=== PATIENT | female | born 1975 | race Caucasian/White ===

== ENCOUNTER → 2017-08-22 18:04 | Outpatient (CLI) | payer OTHER, SELFPAY ==
[2017-08-22 18:06] LABS: Bacteria 0 SEEN /hpf (None Seen); Mucous, Urine 0 SEEN /hpf (<or=2+)
[2017-08-22 18:17] LABS: Color, Urine Yellow (Yellow); Glucose, Dipstick Normal (Normal); Ketone-Dipstick Negative (Negative); Leukocyte Esterase-Dipstick 500 /ul (Negative); Nitrite-Dipstick Negative (Negative); Occult Blood-Urine 250 /ul (Negative); Protein-Dipstick Negative (Negative); Specific Gravity, Urine 1.005 (1.002-1.030); Urine Bilirubin Dipstick Negative (Negative); Urine Clarity Sl. Cloudy (Clear); Urine Urobilinogen Normal (Normal)
[2017-08-22 18:33] LABS: Red Blood Cells-Urine 5-10 SEEN /hpf (0-5); Squamous Epithelial Cells - UA 0-5 SEEN /hpf (5-10); White Blood Cells 50-100 SEEN /hpf (0-5)
== END ==
PROVIDERS: Visit Provider Physician Assistant Surgical
DX: R35.0 Frequency of micturition (principal)
CPT/HCPCS: 81001; 87086; 87088

== ENCOUNTER 2017-08-24 11:34 | Emergency (ER) | payer OTHER, SELFPAY ==
[2017-08-24 11:35] VITALS: BP 136/114; PULSE 107; RESP 18; TEMP 36.6; O2SAT 95; BMI 36.0
--- NOTE | 2017-08-24 12:15 | CT_ITS ---
STUDY: CT ABDOMEN AND PELVIS WITHOUT CONTRAST REASON FOR EXAM: Female, 41 years old. Lower abdominal pain. RADIATION DOSAGE (If Supplied By Facility): CTDIvol = ( 13.88 ) mGy, DLP = ( 717.72 ) mGycm TECHNIQUE: Transaxial images were obtained from the dome of the diaphragm to the symphysis pubis without oral contrast, and without intravenous contrast. Sagittal and coronal images were reconstructed. Individualized dose optimization techniques were used for this CT. COMPARISON: Comparison is made with prior study dated October 01, 2011. FINDINGS: The visualized lung bases are unremarkable. The visualized portions of the heart are within normal limits. Normal liver. Normal gallbladder and extrahepatic biliary system. Normal spleen. Normal pancreas. Normal bilateral adrenal glands. 3 mm calculus in the upper pole calyx of the right kidney. 4 mm calculus in the anterior midpole calyx of the right kidney. 4 mm contrast in the lower Pole collects of the right kidney. Punctate calculus in the mid posterior aspect of the left kidney. 4 mm calculus in the lower pole calyx of the left kidney. There is a small hiatal hernia. Normal small intestine. Normal colon. The appendix is visualized and appears normal. Normal abdominal aorta. Normal inferior vena cava. Normal retroperitoneum. Normal urinary bladder. Phleboliths are seen within the pelvis. Small bilateral benign-appearing inguinal lymph nodes. Normal abdominal wall. Normal osseous structures. CT/Abdomen/Pelvis without Cont IMPRESSION: Small bilateral nonobstructive intrarenal calculi. Electronically Signed: Shimon Marie MD at 12:52 EDT Tel [phone], Service support ,
--- NOTE | 2017-08-24 13:56 | ED.VISSUMM ---
- ER Visit Summary Date of Service: 08/24/17 Chief Complaint: Pelvic cramping History of Present Illness: The patient is a 41 F presenting for evaluation secondary to pelvic cramping. Patient states that 2 days ago she was diagnosed at urgent care with urinary tract infection was started on Macrobid. Her only symptoms for the UTI was that she was having bladder spasms and denies that she was having any dysuria or hematuria or fevers or flank pain. Patient states that today she had a sudden onset of these bladder spasms with a mild amount of radiation to the right side of her back. States that it came on suddenly lasted about an hour and then alleviated. Patient denies that there was any laterality to this other than in her back, no exacerbating relieving factors no fevers. Patient was concerned that potentially she has a kidney stone. Physical Examination: Vital signs are within normal limits, patient is afebrile. General: Patient is well-nourished well-developed and in no acute distress. Head: Normocephalic, atraumatic Eyes: Pupils equal round and reactive bilaterally, extra occular motion intact bialterally ENT: Moist mucous membranes Neck: Supple, no lymphadenopathy, no JVD, no meningismus CVS: Heart regular rate and rhythm, no murmurs, rubs or gallops, radial pulses 2+ bilaterally Resp: Respirations nondistressed, lung sounds clear bilaterally Abdomen: Soft, suprapubic tenderness to palpation without any laterality to this, nondistended, no palpable masses, normal bowel sounds, no flank tenderness Back: Nontender Extremities: Nontender, atraumatic, active full range of motion, no peripheral edema Skin: warm, no rashes, no petechia Neuro: Alert and oriented x 4, CN 2-12 intact, no lateralizing neurological defecits Psyc: Normal affect Test Results: CT abdomen and pelvis shows nonobstructing renal stones no evidence of ureterolithiasis no evidence of pelvic pathology or large ovarian cyst or mass Emergency Department Course and Treatment: Patient presented for evaluation secondary to pelvic cramping in the setting of a UTI. CT shows no ureterolithiasis and no pelvic disease. Patient maintained a pain-free state while in the emergency department. Patient does not have any lateralizing signs to this pain, and given the fact that she has a concomitant UTI I have lower suspicion for the possibility of ovarian torsion I do not believe the pelvic imaging is necessary. Patient will be placed on a course of Pyridium in addition to her Macrobid and instructed to follow-up with her primary care physician. Disposition: Discharge Impression: 1. UTI with bladder spasm This note was generated with [employer] dictation software. It may contain incorrect words, spelling, and punctuation that were not noted in review of the chart prior to signing ED Disposition - Plan for ED Patient: Disposition: Home or Assisted Living Chief Complaint: Complaint Diagnosis: Bladder spasm Instructions: ED UTI Cystitis Female Prescriptions: Phenazopyridine HCl [Pyridium] 200 mg PO BID PRN PRN #10 tab PRN Reason: Pain Referrals: Salvador Rojas MD [Primary Care Provider] - 3-5 Days
--- NOTE | 2017-08-24 14:01 | ED.DCSUM_ITS ---
- ER Visit Summary Date of Service: 08/24/17 Chief Complaint: Pelvic cramping History of Present Illness: The patient is a 41 F presenting for evaluation secondary to pelvic cramping. Patient states that 2 days ago she was diagnosed at urgent care with urinary tract infection was started on Macrobid. Her only symptoms for the UTI was that she was having bladder spasms and denies that she was having any dysuria or hematuria or fevers or flank pain. Patient states that today she had a sudden onset of these bladder spasms with a mild amount of radiation to the right side of her back. States that it came on suddenly lasted about an hour and then alleviated. Patient denies that there was any laterality to this other than in her back, no exacerbating relieving factors no fevers. Patient was concerned that potentially she has a kidney stone. Physical Examination: Vital signs are within normal limits, patient is afebrile. General: Patient is well-nourished well-developed and in no acute distress. Head: Normocephalic, atraumatic Eyes: Pupils equal round and reactive bilaterally, extra occular motion intact bialterally ENT: Moist mucous membranes Neck: Supple, no lymphadenopathy, no JVD, no meningismus CVS: Heart regular rate and rhythm, no murmurs, rubs or gallops, radial pulses 2 + bilaterally Resp: Respirations nondistressed, lung sounds clear bilaterally Abdomen: Soft, suprapubic tenderness to palpation without any laterality to this , nondistended, no palpable masses, normal bowel sounds, no flank tenderness Back: Nontender Extremities: Nontender, atraumatic, active full range of motion, no peripheral edema Skin: warm, no rashes, no petechia Neuro: Alert and oriented x 4, CN 2-12 intact, no lateralizing neurological defecits Psyc: Normal affect Test Results: CT abdomen and pelvis shows nonobstructing renal stones no evidence of ureterolithiasis no evidence of pelvic pathology or large ovarian cyst or mass Emergency Department Course and Treatment: Patient presented for evaluation secondary to pelvic cramping in the setting of a UTI. CT shows no ureterolithiasis and no pelvic disease. Patient maintained a pain-free state while in the emergency department. Patient does not have any lateralizing signs to this pain, and given the fact that she has a concomitant UTI I have lower suspicion for the possibility of ovarian torsion I do not believe the pelvic imaging is necessary. Patient will be placed on a course of Pyridium in addition to her Macrobid and instructed to follow-up with her primary care physician. Disposition: Discharge Impression: 1. UTI with bladder spasm This note was generated with [employer] dictation software. It may contain incorrect words, spelling, and punctuation that were not noted in review of the chart prior to signing ED Disposition - Plan for ED Patient: Disposition: Home or Assisted Living Chief Complaint: Complaint Diagnosis: Bladder spasm Instructions: ED UTI Cystitis Female Prescriptions: Phenazopyridine HCl [Pyridium] 200 mg PO BID PRN PRN #10 tab PRN Reason: Pain Referrals: Salvador Rojsa MD [Primary Care Provider] - 3-5 Days
[2017-08-24 14:03] VITALS: BP 132/82; PULSE 82; PULSE 89; RESP 14; O2SAT 98; O2SAT 99
[2017-08-24] MEDS: Phenazopyridine 95 MG Tablet 190 MG PO (14:07)
== END 2017-08-24 14:09 | disposition home or self-care (01) ==
PROVIDERS: Emergency Provider Emergency Medicine; Family Provider Family Medicine; PCP Family Medicine
DX: N39.0 Urinary tract infection, site not specified (principal); N32.89 Other specified disorders of bladder
CPT/HCPCS: 74176; 99282

== ENCOUNTER → 2017-08-26 18:24 | Outpatient (CLI) | payer OTHER, SELFPAY | PROVIDERS: Visit Provider Family Medicine | DX: N39.0 Urinary tract infection, site not specified (principal) | CPT/HCPCS: 87086; 87088 ==

== ENCOUNTER → 2019-02-13 | Outpatient (CLI) | payer OTHER, SELFPAY ==
--- NOTE | 2019-02-13 13:23 | BI_ITS ---
MAMMOGRAPHY - BILATERAL SCREENING REASON FOR EXAM: Female, 43 years old. Routine annual screening examination. PERTINENT HISTORY: Non-contributory. TECHNIQUE: Digital bilateral breast sae (3D mammographic acquisition) in the CC and MLO projections. 2-D mediolateral oblique (MLO) and craniocaudad (CC) views of both breasts were obtained. CAD: Full Field Digital Mammography with Computer Added Detection was performed. COMPARISON: None. Baseline examination. FINDINGS: Breast Composition: There are scattered areas of fibroglandular density. There are no dominant masses or suspicious calcifications. Benign appearing bilateral axillary lymph nodes. No other significant abnormalities are identified. BI/SCREEN MAMM (CAD) W/SAE BILAT IMPRESSION: Negative screening mammogram. Yearly followup mammogram recommended. (A) ASSESSMENT CATEGORY: BIRADS Category 2: Benign. A letter regarding these results will be sent to the patient by the facility within 30 days. Approximately 10% of breast cancers are not detected by mammography. A normal mammogram should not delay biopsy of a clinically suspicious abnormality. [id number] Electronically Signed: Shimon Marie, at 15:00 EDT , Service support ,
== END | disposition home or self-care (01) ==
LOC: OPBI 13:21
PROVIDERS: Family Provider Family Medicine; PCP Family Medicine; Referring Provider Family Medicine; Visit Provider Family Medicine
DX: Z12.31 Encounter for screening mammogram for malignant neoplasm of breast (principal)
CPT/HCPCS: 77063; 77067

== ENCOUNTER → 2020-08-05 | Outpatient (CLI) | payer OTHER, SELFPAY ==
[2020-08-05 10:16] VITALS: BMI 34.4
[2020-08-08 13:37] LABS: HPV APTIMA, High Risk Negative (Negative)
== END | disposition home or self-care (01) ==
LOC: LABSPEC 12:09
PROVIDERS: PCP Family Medicine; Referring Provider Nurse Practitioner Women's Health; Visit Provider Nurse Practitioner Women's Health
DX: Z12.4 Encounter for screening for malignant neoplasm of cervix (principal)
CPT/HCPCS: 87624; 88175; G0145

== ENCOUNTER → 2020-08-12 07:40 | Outpatient (CLI) | payer OTHER, SELFPAY ==
[2020-08-05 10:16] VITALS: BMI 34.4
--- NOTE | 2020-08-12 07:43 | US_ITS ---
STUDY: ULTRASOUND OF THE FEMALE PELVIS - COMPLETE REASON FOR EXAM: Female, 44 years old. Bleeding LMP: 07/28/2020. TECHNIQUE: Transabdominal and Transvaginal TECHNICAL QUALITY: Adequate. COMPARISON: None. FINDINGS: The uterus is anteverted and is in a midline position. The uterus measures 9.9 cm x 6.3 cm x 4.8 cm. Normal uterine cervix. The endometrium measures 8 mm in thickness, and is hyperechoic. There is no demonstrated endometrial mass. Heterogeneous appearance of the myometrium although no focal fibroid is seen. I.U.D. - The patient does not have an I.U.D. The right ovary is visualized. The right ovary measures 5.4 cm x 3.4cm x 2.9 cm. A dominant follicle is seen within it measuring 1.7 cm x 1.6 cm x 1.2 centimeters. There is no visualized right adnexal mass or complex lesion. There is normal arterial and normal venous vascularity. The left ovary is visualized. The left ovary measures 4.7 cm x 2.9 cm x 2.2 cm. There is a 2.1 cm x 1.9 cm x 1.5 cm left ovarian septated cyst. There is no visualized left adnexal mass or complex lesion. There is normal arterial and normal venous vascularity. There is no fluid in the cul-de-sac. The pre void volume of the bladder was 55 ml. Polycystic ovary disease: No. US/Transvaginal Non- IMPRESSION: Heterogeneous appearance of the uterus although no focal fibroid is seen. 2.1 cm x 1.5 cm x 1.9 cm left ovarian septated cyst. Dominant follicle in the right ovary measuring 1.7 cm x 1.6 cm x 1.26. Electronically Signed: Shimon Marie MD at 13:57 EDT , Service support ,
--- NOTE | 2020-08-12 07:43 | US_ITS ---
STUDY: ULTRASOUND OF THE FEMALE PELVIS - COMPLETE REASON FOR EXAM: Female, 44 years old. Bleeding LMP: 07/28/2020. TECHNIQUE: Transabdominal and Transvaginal TECHNICAL QUALITY: Adequate. COMPARISON: None. FINDINGS: The uterus is anteverted and is in a midline position. The uterus measures 9.9 cm x 6.3 cm x 4.8 cm. Normal uterine cervix. The endometrium measures 8 mm in thickness, and is hyperechoic. There is no demonstrated endometrial mass. Heterogeneous appearance of the myometrium although no focal fibroid is seen. I.U.D. - The patient does not have an I.U.D. The right ovary is visualized. The right ovary measures 5.4 cm x 3.4cm x 2.9 cm. A dominant follicle is seen within it measuring 1.7 cm x 1.6 cm x 1.2 centimeters. There is no visualized right adnexal mass or complex lesion. There is normal arterial and normal venous vascularity. The left ovary is visualized. The left ovary measures 4.7 cm x 2.9 cm x 2.2 cm. There is a 2.1 cm x 1.9 cm x 1.5 cm left ovarian septated cyst. There is no visualized left adnexal mass or complex lesion. There is normal arterial and normal venous vascularity. There is no fluid in the cul-de-sac. The pre void volume of the bladder was 55 ml. Polycystic ovary disease: No. US/Pelvic (Non ) IMPRESSION: Heterogeneous appearance of the uterus although no focal fibroid is seen. 2.1 cm x 1.5 cm x 1.9 cm left ovarian septated cyst. Dominant follicle in the right ovary measuring 1.7 cm x 1.6 cm x 1.26. Electronically Signed: Shimon Marie MD at 13:57 EDT , Service support ,
--- NOTE | 2020-08-12 07:43 | BI_ITS ---
MAMMOGRAPHY - BILATERAL SCREENING REASON FOR EXAM: Female, 44 years old. Routine annual screening examination. PERTINENT HISTORY: Non-contributory. TECHNIQUE: Digital bilateral breast sae (3D mammographic acquisition) in the CC and MLO projections. 2-D mediolateral oblique (MLO) and craniocaudad (CC) views of both breasts were obtained. CAD: Full Field Digital Mammography with Computer Added Detection was performed. COMPARISON: Comparison is made with prior study 02/13/2019. FINDINGS: Breast Composition: There are scattered areas of fibroglandular density. There are no dominant masses or suspicious calcifications. Stable benign-appearing axillary lymph nodes. No other significant abnormalities are identified. There has been no significant change since the prior study. BI/SCRN MAMM (CAD)W/SAE BILAT IMPRESSION: Stable bilateral screening mammogram. Yearly follow-up mammogram recommended. (A) ASSESSMENT CATEGORY: BIRADS Category 2: Benign. A letter regarding these results will be sent to the patient by the facility within 30 days. Approximately 10% of breast cancers are not detected by mammography. A normal mammogram should not delay biopsy of a clinically suspicious abnormality. [id number] Electronically Signed: Shimon Marie MD at 9:29 EDT , Service support ,
== END ==
PROVIDERS: PCP Family Medicine; Referring Provider Nurse Practitioner Women's Health; Visit Provider Nurse Practitioner Women's Health
DX: N92.0 Excessive and frequent menstruation with regular cycle (principal); Z12.31 Encounter for screening mammogram for malignant neoplasm of breast
CPT/HCPCS: 76830; 76856; 77063; 77067

== ENCOUNTER → 2020-12-04 13:25 | Outpatient (CLI) | payer OTHER, SELFPAY ==
[2020-08-05 10:16] VITALS: BMI 34.4
--- NOTE | 2020-12-04 13:27 | RAD_ITS ---
INDICATION: BRONCHITIS EXAMINATION/TECHNIQUE: X-RAY - XR Chest 2 Views COMPARISON: None. FINDINGS: The lungs are clear. The cardiomediastinal silhouette is unremarkable. No pleural effusion or pneumothorax. No acute osseous abnormalities. RAD/Chest PA and Lateral IMPRESSION: No acute radiographic abnormalities. Electronically Signed: Jose Godinez MD at 23:42 EDT Tel , Service support ,
== END ==
PROVIDERS: PCP Family Medicine; Referring Provider Family Medicine; Visit Provider Family Medicine
DX: J20.9 Acute bronchitis, unspecified (principal)
CPT/HCPCS: 71046; 87635; U0005; U0003

== ENCOUNTER 2021-08-01 11:26 | Emergency (ER) | payer OTHER, SELFPAY ==
[2021-08-01 11:26] VITALS: BP 129/92; PULSE 91; RESP 16; TEMP 36.4; O2SAT 100; BMI 34.7
--- NOTE | 2021-08-01 11:34 | RAD_ITS ---
STUDY: X-RAY - RIGHT KNEE REASON FOR EXAM: Female, 45 years old. Injury TECHNIQUE: 4 view(s) of the knee. COMPARISON: None. FINDINGS: Normal visualized distal femur. Normal visualized proximal tibia and fibula. Normal proximal tibiofibular articulation. There is mild degenerative arthrosis of the medial femorotibial compartment. There is mild degenerative arthrosis of the lateral femorotibial compartment. There is mild degenerative arthrosis of the patellofemoral articulation. The soft tissue structures are unremarkable. RAD/Knee 4 or More Views IMPRESSION: Degenerative arthrosis. Electronically Signed: Lizzie Mtz MD at 12:29 EST ,
--- NOTE | 2021-08-01 11:35 | EDS_ITS ---
HPI HPI - Fall History of Present Illness Chief Complaint: Lower Extremity Injury Informant: patient Occured/Mechanism Occurred: Today Mechanism/Context: Yes same level fall Pain/Injury Pain Location: lower extremity (Right knee) Quality of Pain: Aching and - (Clicking) Current Severity: Mild Maximum Severity: Moderate Associated Symptoms Associated Symptoms: Negative for Parasthesias and Weakness Narrative Narrative: Patient presents for evaluation of right knee injury. She is a nurse here at the hospital. When walking into the hospital this morning she fell in the parking lot landing on her right knee. She states she took 2 Aleve already for pain. She has noticed a clicking sensation in her knee with some mild edema. She denies any other significant injury from her fall. PFSH PFSH Medical History no medical history no medical history Home Medications multivitamin 1 tab PO QAM 08/22/17 [History Last Taken Unknown] ascorbate calcium (vitamin C) 500 mg tablet 500 mg PO DAILY 08/05/20 [History Last Taken Unknown] cholecalciferol (vitamin D3) 50 mcg (2,000 unit) capsule 50 mcg PO DAILY 08/05/20 [History Last Taken Unknown] tranexamic acid 650 mg tablet 1,300 mg PO TID #60 tab 08/05/20 [Rx Last Taken Unknown] Allergy/AdvReac Type Severity Reaction Status Date / Time No Known Allergies Allergy Unverified 08/01/21 11:30 Family History Mother COPD (chronic obstructive pulmonary disease) Hypertension Father Hypertension Grandfather Diabetes Hypertension Prostate cancer Grandmother Alzheimer's dementia Breast cancer CVA (cerebral vascular accident) Hypertension Surgical History History of tonsillectomy S/P Social History household members: spouse and children number of children: 5 current occupational status: employed current occupation: [employer] current occupational exposures/hazards: No history of recent travel: No sexually active: Yes Smoking Status: Never smoker alcohol intake: former substance use type: does not use diet: low carbohydrate and other well-balanced diet: daily or most days what type of physical activity do you participate in: walking frequency: daily seatbelt use: always do you feel safe at home: Yes additional social history: - Ish GARCIA ED Constitutional Constitutional ED: Denies chills or fever(s) Eyes Eyes: Denies change in vision ENT ENT ED: Denies rhinorrhea or sore throat Cardiovascular Cardiovascular: Denies chest pain or palpitations Respiratory/Chest Respiratory/Chest: Denies cough or dyspnea Gastrointestinal Gastrointestinal: Denies abdominal pain Musculoskeletal Musculoskeletal: Reports arthralgias Integumentary Denies rash Neurologic Neurologic: Denies paresthesias or weakness Hematologic/Lymphatic Hematologic/Lymphatic: Denies easy bleeding or easy bruising Allergic/Immunologic Allergic/Immunologic ED: Denies urticaria EXAM Physical Exam Const Vital Signs: 08/01/21 11:26 Temperature 97.6 F L Temperature Source Temporal Pulse Rate 91 Respiratory Rate 16 Blood Pressure 129/92 H Blood Pressure Mean 104 Pulse Ox 100 Oxygen Delivery Method Room Air Positive well nourished and well developed General Appearance ED: well developed Eyes PERRL and EOMs intact bilaterally Neck full ROM Chest Wall inspection of chest normal and palpation of chest normal Resp normal respiratory effort and clear to auscultation bilaterally Cardio regular rate and regular rhythm GI non-tender Palpation: soft Extremity Extremity Narrative: Patient with erythematous horizontal lisset across her anterior right knee. No laceration noted. Minimal edema appreciated. Tenderness over the anterior knee. No tenderness along joint lines. Calf soft and nontender. Strong distal pulses. Anterior drawer test negative. No significant tenderness with testing of the medial or lateral collateral ligaments. Patient does have some mild pain and clicking sensation with compression of the knee joint space consistent with possible meniscus injury. Neuro oriented x3 and no sensory deficits noted Sensorium / Orientation: alert Motor Exam: strength 5/5 throughout Psych mental status grossly normal [facility] Treatment and Re-Evaluation Narrative: Right knee x-ray obtained and unremarkable per my interpretation. A ce wrap will be applied. Patient will follow up with employee health in 3 to 5 days. If not significantly improved may require referral to orthopedics for evaluation of meniscus. Discharge Plan Triage Chief Complaint: Lower Extremity Injury ED Provider: Leola Vargas Dx/Rx/DC Orders Clinical Impression: Contusion of knee, right, Fall Instructions: ED Contusion, Lower Extremity Prescriptions: No Action multivitamin [Daily Multi-Vitamin] tablet 1 tab PO QAM RF: 0 cholecalciferol (vitamin D3) 50 mcg (2,000 unit) capsule 50 mcg PO DAILY RF: 0 ascorbate calcium (vitamin C) 500 mg tablet 500 mg PO DAILY RF: 0 tranexamic acid [Lysteda] 650 mg tablet 1,300 mg PO TID Qty: 60 RF: 2 Stand Alone Forms: Work Status Form Primary Care Provider: Salvador Rojas Referrals: Salvador Rojas MD [Primary Care Provider] - Health,Employee [NON-STAFF] - 3-5 Days Disposition Disposition: Home, Self Care
== END 2021-08-01 12:00 | disposition home or self-care (01) ==
LOC: ED 11:54
PROVIDERS: Emergency Provider Emergency Medicine; PCP Family Medicine; Visit Provider Emergency Medicine
DX: S80.01XA Contusion of right knee, initial encounter (principal); W18.30XA Fall on same level, unspecified, initial encounter; Y92.481 Parking lot as the place of occurrence of the external cause; R60.0 Localized edema
CPT/HCPCS: 73564; 99282

== ENCOUNTER → 2022-02-23 | Outpatient (CLI) | payer OTHER, SELFPAY ==
[2022-02-23 15:03] LABS: T4 Free Direct 1.09 ng/dL (0.76-1.46); Thyroid Stim Hormone (TSH) 1.03 uIU/mL (0.358-3.74)
[2022-02-25 10:39] LABS: Thyroid Peroxidase AB < 8 IU/mL (0-34)
== END | disposition home or self-care (01) ==
LOC: LAB 13:44
PROVIDERS: PCP Family Medicine; Visit Provider Nurse Practitioner Women's Health
DX: R23.2 Flushing (principal)
CPT/HCPCS: 36415; 84439; 84443; 86376

== ENCOUNTER → 2022-03-16 | Outpatient (CLI) | payer OTHER, SELFPAY ==
--- NOTE | 2022-03-16 12:27 | BI_ITS ---
MAMMOGRAPHY - BILATERAL SCREENING REASON FOR EXAM: Female, 46 years old. Routine annual screening examination. PERTINENT HISTORY: Non-contributory. TECHNIQUE: Digital bilateral breast sae (3D mammographic acquisition) in the CC and MLO projections. 2-D mediolateral oblique (MLO) and craniocaudad (CC) views of both breasts were obtained. CAD: Full Field Digital Mammography with Computer Added Detection was performed. COMPARISON: Comparison is made with prior study dated 08/12/2020 and 02/13/2019. FINDINGS: Breast Composition: There are scattered areas of fibroglandular density. There are no dominant masses or suspicious calcifications. Stable small benign-appearing bilateral axillary No other significant abnormalities are identified. There has been no significant change since the prior study. BI/SCRN MAMM (CAD)W/SAE BILAT IMPRESSION: Stable bilateral screening mammogram. Yearly follow-up mammogram recommended. (A) ASSESSMENT CATEGORY: BIRADS Category 2: Benign. A letter regarding these results will be sent to the patient by the facility within 30 days. Approximately 10% of breast cancers are not detected by mammography. A normal mammogram should not delay biopsy of a clinically suspicious abnormality. [id number] Electronically Signed: Shimon Marie MD at 13:18 EDT ,
== END | disposition home or self-care (01) ==
LOC: OPBI 12:26
PROVIDERS: PCP Family Medicine; Visit Provider Nurse Practitioner Women's Health
DX: Z12.31 Encounter for screening mammogram for malignant neoplasm of breast (principal)
CPT/HCPCS: 77063; 77067

== ENCOUNTER → 2022-08-26 | Outpatient (CLI) | payer OTHER, SELFPAY ==
[2022-08-26 11:01] LABS: Absolute Lymphocyte Count 2.03 X10^3/uL (0.83-4.51); Absolute Neutrophil Count 3.2 X10^3/uL (2.0-7.7); Basophil# 0.05 X10^3/uL; Basophil% 0.9 % (0-1); Eosinophil# 0.11 X10^3/uL; Eosinophils% 1.9 % (0-5); Hematocrit 41.1 % (37-47); Hemoglobin 13.9 g/dL (12.0-15.0); Lymphocyte # 2.03 X10^3/ul (0.83-4.51); Lymphocyte % 34.8 % (19-41); Mean Corp Hgb Conc 33.8 g/dL (32-36); Mean Corpuscular Hgb 32.3 pg (27.0-32.0); Mean Corpuscular Volume 95.4 fL (81-99); Mean Platelet Vol. 11.1 fl (6.2-12.0); Monocyte% 6.8 % (0-10); NRBC Flagged by Analyzer 0 % (0-5); Neutrophil # 3.23 X10^3/uL (2.7-7.7); Neutrophil % 55.3 % (47-70); Platelet Count 266 K/mm3 (150-450); RBC Distribution Width CV 11.9 % (11.6-14.6); RBC Distribution Width SD 41.5 fl (35.1-43.9); Red Blood Count 4.31 M/mm3 (4.2-5.4); White Blood Count 5.8 K/mm3 (4.4-11.0)
== END | disposition home or self-care (01) ==
LOC: LAB 10:20
PROVIDERS: PCP Family Medicine; Visit Provider Obstetrics & Gynecology
DX: N92.0 Excessive and frequent menstruation with regular cycle (principal)
CPT/HCPCS: 36415; 85025

== ENCOUNTER → 2022-09-20 | Outpatient (CLI) | payer OTHER, SELFPAY ==
--- NOTE | 2022-09-20 08:28 | US_ITS ---
STUDY: ULTRASOUND OF THE FEMALE PELVIS - COMPLETE REASON FOR EXAM: Female, 46 years old. Frequent menstruation -- MENORRHAGIA -- BLEEDING SINCE 08/16/22 LMP: August 16, 2022. TECHNIQUE: Transabdominal and Transvaginal TECHNICAL QUALITY: Adequate. COMPARISON: Comparison is made with prior study dated August 12, 2020. FINDINGS: The uterus is anteverted and is in a midline position. The uterus is enlarged and measures 10.6 cm x 6.5 cm x 6.3 cm. There is a Nabothian cyst of the cervix. The endometrium is thickened and measures 20 mm in thickness, and is heterogeneous (striated). There is a 3.2 cm x 3 cm x 1.4 cm hypoechoic density in the endometrium. A polyp should be ruled out. There is no demonstrated endometrial mass. There is no demonstrated myometrial mass. I.U.D. - The patient does not have an I.U.D. The right ovary is visualized. The right ovary measures 3.1 cm x 2.9 cm x 1.4 cm. There is a 2.3 cm x 2.4 cm x 0.9 cm cyst in the ovary. There is no visualized right adnexal mass or complex lesion. There is normal arterial and normal venous vascularity. The left ovary is visualized. The left ovary measures 4.1 cm x 4 cm x 2.5 cm. There is a 2.4 cm x 2.4 cm by 1.9 cm cyst in the left ovary. There is no visualized left adnexal mass or complex lesion. There is normal arterial and normal venous vascularity. There is no fluid in the cul-de-sac. The pre void volume of the bladder was 365 ml. US/Pelvic (Non ) IMPRESSION: The uterus is enlarged. Heterogeneous endometrial thickening with the findings suggestive of an endometrial polyp. Bilateral ovarian cysts. Electronically Signed: Shimon Marie MD at 13:12 EDT ,
== END | disposition home or self-care (01) ==
LOC: US 08:27
PROVIDERS: PCP Family Medicine; Referring Provider Obstetrics & Gynecology; Visit Provider Obstetrics & Gynecology
DX: N92.0 Excessive and frequent menstruation with regular cycle (principal)
CPT/HCPCS: 76830; 76856

== ENCOUNTER 2022-10-05 13:04 | Day surgery (SDC) | payer OTHER, SELFPAY ==
[2022-10-04 11:27] LABS: Hemoglobin 13.2 g/dL (12.0-15.0); Mean Corpuscular Hgb 31.7 pg (27.0-32.0); Mean Corpuscular Volume 95.9 fL (81-99); Mean Platelet Vol. 10.4 fl (6.2-12.0); Platelet Count 263 K/mm3 (150-450); RBC Distribution Width CV 12.4 % (11.6-14.6); RBC Distribution Width SD 43.2 fl (35.1-43.9); Red Blood Count 4.17 M/mm3 (4.2-5.4); White Blood Count 7.3 K/mm3 (4.4-11.0)
[2022-10-05] VITALS (7 sets, daily range): BP systolic 107–132; BP diastolic 71–79; PULSE 76–89; RESP 16–20; TEMP 36.4–36.8; O2SAT 98–100; BMI 37.0
--- NOTE | 2022-10-05 06:09 | PCM.HP.BLA ---
History and Physical Intake Vital Signs ? 09/27/2313:03 09/27/2313:04 Height ? 5 ft 2 in Weight: 205 lb 2 oz ? BP 126/87 H ? Intake Visit Reasons:?EMB Assessment Rn Required: No Is patient in pain?: No Allergies No Known Allergies Allergy (Verified 09/27/22 14:03) Medications multivitamin (Daily Multi-Vitamin tablet) 1 tab PO QAM 08/22/17 [History Confirmed 09/27/22] magnesium 250 mg tablet 250 mg PO DAILY 02/23/22 [History Confirmed 09/27/22] tranexamic acid 650 mg tablet (Lysteda) 1,300 mg PO TID #60 tabs 02/23/22 [Rx Confirmed 09/27/22] calcium carbonate 600 mg calcium (1,500 mg) tablet (Calcium) 600 mg PO DAILY 08/26/22 [History Confirmed 09/27/22] medroxyprogesterone 10 mg tablet (Provera) 10 mg PO .COMPLEX #45 tabs 08/26/22 [Rx Confirmed 09/27/22] Post menopausal: No [facility] : No [facility]? History of tonsillectomy S/P Family History? Mother COPD (chronic obstructive pulmonary disease) HypertensionFather HypertensionGrandfather Diabetes Hypertension Prostate cancerGrandmother Alzheimer's dementia Breast cancer CVA (cerebral vascular accident) Hypertension Social History? household members:? spouse and children number of children:? 5 current occupational status:? employed current occupation:? [employer] current occupational exposures/hazards:? No history of recent travel:? No sexually active:? Yes Smoking Status:? Never smoker alcohol intake:? former substance use type:? does not use caffeine:? Yes what type of physical activity do you participate in:? walking frequency:? 5-6 times per week seatbelt use:? always do you feel safe at home:? Yes additional social history:? - Ish [facility] EMB Details: JUAN YOU is a 46 year old who presents for discussion of heavy bleeding, was controlled on lysteda and then had breakthrough bleeding on it and on ultrasoud showed 3 cm endometrial polyp or fibroid.? she has been on higher dose provera and this helped stop it this time. Female Reproductive History Menopausal Symptoms: Yes hot flashes and Yes night sweats History ? ? ? 5 ? Elective abortions ? Hx Para ? ? ? 5 ? Spontaneous abortions ? Hx # Term Pregnancies ? Ectopic pregnancies ? Hx # Pregnancies ? Multiple births ? # of living children ? ? ? 5 Past Pregnancies Del. Date Name GA/Weeks Outcome Route Bth Weight Gen Labor Lgth Anesthesia Del Locatn Provider FOB Unknown Gabriela? 1998 ? Unknown Theresa? 2000 ? Unknown Mauricio? 2003 ? Unknown Yves? 2005 ? Unknown Donell? 2011 ? ROS Const Constitutional: Reports fatigue and night sweats; Denies fever(s), headache(s), increased appetite, poor appetite, weight gain or weight loss ENT ENT: Reports system reviewed and no additional complaints, except as documented Cardio Card: Denies chest pain Resp Resp: Denies cough or dyspnea GI GI: Reports as per HPI; Denies abdominal pain, constipation, nausea or vomiting : Reports as per HPI, hot flashes and urinary incontinence; Denies difficulty voiding, dysuria, nipple discharge, urinary frequency, urinary hesitancy, urinary urgency, vaginal discharge, vaginal dryness, vaginal odor or vaginal pruritus Musc Musc: Denies arthralgias, back pain or muscle weakness Skin Skin/Breast: Denies alopecia, change in hair, dry skin, breast mass, breast pain, breast skin changes or nipple discharge Neuro Neuro: Reports system reviewed and no additional complaints, except as documented Psych Psych: Reports system reviewed and no additional complaints, except as documented Endo Endo: Denies cold intolerance, excessive sweating, heat intolerance or polydipsia Jose Armando/Lymph Hematologic/Lymphatic: Denies easy bleeding, Denies easy bruising and Denies lymphadenopathy Exam Const General: cooperative, healthy appearing, comfortable and no acute distress Orientation: alert [facility] Head: normal to inspection and normocephalic Ears: hearing grossly normal bilaterally and external ears normal Nose: external nose normal and nares normal Face and sinus: normal facial exam Neck Neck: normal visual inspection and no lymphadenopathy Thyroid: thyroid normal Chest Chest palpation & inspection: normal inspection of the chest Resp Effort & Inspection: normal respiratory effort Auscultation: clear to auscultation bilaterally Cardio Rate: regular rate Rhythm: regular rhythm Heart Sounds: S1 normal and S2 normal GI Inspection: normal to inspection and non-distended Palpation: soft and no hepatosplenomegaly Musc Other: gross motor intact no deficits, full bilateral strength Skin General: no rashes or lesions noted Neuro General: patient alert, patient awake, moves all extremities and no focal motor deficits Motor: muscle tone normal throughout Extrem General: normal to inspection and no pedal edema Psych Appearance: grossly normal Mental Status: mental status grossly normal Affect: normal affect Speech and Movement: speech and movement normal Coding Level of Care Code Off vis,est,level 4 Diagnoses Menorrhagia with regular cycle? N92.0 Assessment and Plan Assessment and Plan (1) Menorrhagia with regular cycle: ?Status:?Acute ?Comment: endometrial polyp- recommend surgical removal d and c hysteroscopy symphion resection Plan After discussing the patient's diagnosis and treatment plan options, patient wishes to proceed with surgical management.? I have discussed with the patient the risks, benefits, and alternatives of the procedure which include but are not limited to risks of anesthesia, bleeding, infection, possible damage to bowel, bladder, or surrounding vasculature which could lead to additional surgery to evaluate any complications.? Patient agrees to procedure and wishes to proceed.? ACOG/uptodate references given for additional information regarding procedure.? UPDATE- I have seen the patient and performed any clinically relevant updates to the history and physical exam. Jessica Vance MD
[2022-10-05 13:44] LABS: Internal QC Validated? YES +Cl - CLEAR BKGD; Pregnancy, Urine Negative Negative
[2022-10-05] MEDS: Lactated Ringers 1,000 ML 15 ML IV (13:46)
--- NOTE | 2022-10-05 14:25 | EMB_PTH ---
PATIENT: JUAN YOU LOC: [facility] [place] U#:[id number] AGE/SX: 46/F ROOM: RE10/05/[address]: Dr. Jessica Vance MD : 1975 BED: DIS: 10/05/2022 SPEC #: [id number] RECD: 10/06/22 08:14 STATUS: IONA MONICA #: [id number] HENRY: 10/05/22 14:[address]: Jessica Vance DEPT: SURGICAL PATHOLOGY RECD BY: Jordi Malone ENTERED: 10/06/22 09:06 SP TYPE: ENDOM BX/C GWENDOLYN DR: Dr. Salvador Rojas MD Tissues: Endometrium, NOS Procedures: Surgery Specimen Level IV HEADER OPERATION: Hysteroscopy, D & C Symphion resection PRE-OP DIAGNOSIS: Menorrhagia TISSUE SUBMITTED: Endometrial shavings MICROSCOPIC DIAGNOSIS Endometrial shavings, D & C Symphion resection: Dyssynchronous endometrium consisting of focal changes consistent with exogenous hormone effect, mildly disordered proliferative endometrium and focal area of secretory endometrium. Fragments of myometrium. Fragments of benign endocervical mucosa. See comment. SHERWIN:malorie 10/07/2022 COMMENT Clinical correlation and appropriate follow up are necessary. MICROSCOPIC DESCRIPTION Slides are reviewed. GROSS DESCRIPTION Received in fixative is one container labeled with the patient's name and designated endometrial shavings. The specimen consists of multiple irregular fragments of thomas, indurated tissue that in aggregate measure 7.5 x 3.0 x 0.6 cm. The specimen is totally submitted in five cassettes. / SHERWIN:malorie 10/06/2022 TC:[facility]: [id number]
--- NOTE | 2022-10-05 16:54 | OP.PCM_ITS ---
Problems Associated Problem List Diagnoses (1) Adult BMI 38.0-38.9 kg/sq m: (2) Menorrhagia with regular cycle: Report of Operation Date of Procedure: 10/05/22 Pre-Operative Diagnosis: see problem list Post-Operative Diagnosis: same Surgery/Procedure Performed:: D&C hysteroscopy polypectomy using symphion Description of Surgical Findings:: thickened calcified lining, irregular anterior more than posterior Surgeon: Jessica Vance permanent mold supervisor: None Type of Anesthesia: Local MAC Special Medications: none Specimen's removed: EMC, polyp Drains: none Estimated Blood Loss (mL): 50 Fluids Replaced: crystalloid Description of Procedure: Patient was prepped and draped in a normal sterile fashion under MAC anesthesia. A weighted speculum was placed in the vagina and the anterior lip of the cervix was grasped with a single-tooth tenaculum. minimal uterine descent with grasping the cervix. A paracervical block was placed with 1% lidocaine. Cervix was progressively dilated to allow passage of a 5 mm hysteroscope. The lining was fully visualized and noted to have a thickened appearance irregular, feather like appearing, and calcified. Uterus sounded to 8 cm. Direct visual curettage was performed using the device, and all specimens were sent to pathology. All instruments were removed from the vagina and excellent hemostasis was noted. Patient was awoken and taken to recovery in stable condition. Grafts/Implants Used: none Complications none Admit VTE Documentation VTE Present on Admission: No VTE Mechan Device Prophylaxis: SCD's Multi Select Codes Urinary/Genital Urinary/Genital CPT Codes: 74883 Hysteroscopy,EMC, Polypectomy
[2022-10-05] MEDS: Lidocaine 1% (30 ml sdv) 30 ML Vial (17:04)
[2022-10-05] MEDS: FERRIC SUBSULFATE 8 GM SOLN (17:13)
--- NOTE | 2022-10-05 17:41 | DCINST_ITS ---
Discharge Instructions Procedure D&C Diet Discharge Diet: No restrictions Activity Discharge Activity: Return to Normal Activity, May Shower and May Take a Tub Bath (after 1 week) May resume sexual activity in: 1-2 weeks Weight Bearing Status: Weight bearing as tolerated Lifting Restrictions: none Dressing / Incision Call your doctor if you observe: Fever of 101 or Higher, Using more than 1 pad per hour, Shortness of breath and Uncontrolled pain Follow Up Care Please Follow Up With: Jessica Vance MD When: Call [phone] to schedule appointment. Test Results: Test results from this visit will be discussed in further detail at your follow- up appointment, if applicable. Discharge Plan Admission Attending Provider: Jessica Vance Primary Care Provider: Salvador Rojas Discharge Orders/Prescriptions Prescriptions: Continued multivitamin [Daily Multi-Vitamin] tablet 1 tab PO QAM calcium carbonate [Calcium 600] 600 mg calcium (1,500 mg) tablet 600 mg PO DAILY Discontinued medroxyprogesterone [Provera] 10 mg tablet 10 mg PO .COMPLEX Qty: 45 9RF Rx Instructions: 10 mg PO TID x 3 days then BID x 3 days then once daily for remainder Referrals / Follow Up: Salvador Rojas MD [Primary Care Provider] - Disposition Disposition (needs filled in before D/C Order can be placed): Home, Self Care
== END 2022-10-05 18:08 | disposition home or self-care (01) ==
LOC: SDC 13:05 → AC 13:06
PROVIDERS: PCP Family Medicine; Referring Provider Obstetrics & Gynecology; Visit Provider Obstetrics & Gynecology
PROC: 0UB98ZZ Excision of Uterus, Via Natural or Artificial Opening Endoscopic (ICD-10-PCS; CPT 58558; principal; 2022-10-05 14:10)
DX: N84.0 Polyp of corpus uteri (principal); N92.0 Excessive and frequent menstruation with regular cycle; N95.1 Menopausal and female climacteric states
CPT/HCPCS: 58558; 00952; 36415; 81025; 85027; 86850; 86900; 86901; 88305; J7120; J2405

== ENCOUNTER → 2022-10-21 | Outpatient (CLI) | payer OTHER, SELFPAY | END | disposition home or self-care (01) | LOC: PSN 14:00 | PROVIDERS: PCP Family Medicine; Referring Provider Obstetrics & Gynecology; Visit Provider Obstetrics & Gynecology | DX: E66.8 Other obesity (principal); Z68.38 Body mass index [BMI] 38.0-38.9, adult | CPT/HCPCS: 93005 ==

== ENCOUNTER → 2022-10-25 | Outpatient (CLI) | payer OTHER, SELFPAY ==
[2022-10-25 14:15] LABS: Vitamin D,25 Hydroxy 43.8 ng/mL
== END | disposition home or self-care (01) ==
LOC: LAB 13:13
PROVIDERS: PCP Family Medicine; Referring Provider Obstetrics & Gynecology; Visit Provider Obstetrics & Gynecology
DX: Z13.21 Encounter for screening for nutritional disorder (principal)
CPT/HCPCS: 36415; 82306

== ENCOUNTER 2022-11-11 10:40 | Outpatient (RCR) | payer OTHER, SELFPAY | END 2022-11-19 23:59 | LOC: NS 10:40 | PROVIDERS: PCP Family Medicine; Referring Provider Obstetrics & Gynecology; Visit Provider Obstetrics & Gynecology | DX: Z71.3 Dietary counseling and surveillance (principal); E66.9 Obesity, unspecified; Z68.34 Body mass index [BMI] 34.0-34.9, adult | CPT/HCPCS: 97802 ==

== ENCOUNTER 2022-12-01 08:59 | Outpatient (RCR) | payer OTHER, SELFPAY | END 2022-12-20 23:59 | LOC: NS 08:59 | PROVIDERS: PCP Family Medicine; Referring Provider Obstetrics & Gynecology; Visit Provider Obstetrics & Gynecology | DX: Z71.3 Dietary counseling and surveillance (principal); E66.9 Obesity, unspecified; Z68.37 Body mass index [BMI] 37.0-37.9, adult | CPT/HCPCS: 97803 ==

== ENCOUNTER 2022-12-30 09:07 | Outpatient (RCR) | payer OTHER, SELFPAY | END 2023-01-20 23:59 | LOC: NS 09:07 | PROVIDERS: PCP Family Medicine; Referring Provider Obstetrics & Gynecology; Visit Provider Obstetrics & Gynecology | DX: Z71.3 Dietary counseling and surveillance (principal); E66.9 Obesity, unspecified; Z68.37 Body mass index [BMI] 37.0-37.9, adult | CPT/HCPCS: 97803 ==

== ENCOUNTER 2023-02-02 08:51 | Outpatient (RCR) | payer OTHER, SELFPAY | END 2023-02-19 23:59 | LOC: NS 08:51 | PROVIDERS: PCP Family Medicine; Referring Provider Obstetrics & Gynecology; Visit Provider Obstetrics & Gynecology | DX: Z71.3 Dietary counseling and surveillance (principal); E66.9 Obesity, unspecified; Z68.37 Body mass index [BMI] 37.0-37.9, adult | CPT/HCPCS: 97803 ==

== ENCOUNTER 2023-03-07 09:01 | Outpatient (RCR) | payer OTHER, SELFPAY | END 2023-03-22 23:59 | LOC: NS 09:01 | PROVIDERS: PCP Family Medicine; Referring Provider Obstetrics & Gynecology; Visit Provider Obstetrics & Gynecology | DX: Z71.3 Dietary counseling and surveillance (principal); Z68.37 Body mass index [BMI] 37.0-37.9, adult; E66.9 Obesity, unspecified | CPT/HCPCS: 97803 ==

== ENCOUNTER → 2024-04-11 | Outpatient (CLI) | payer OTHER, SELFPAY ==
[2024-04-11 10:47] LABS: Vitamin D,25 Hydroxy 39.8 ng/mL
== END | disposition home or self-care (01) ==
LOC: LAB 09:20
PROVIDERS: PCP Family Medicine; Referring Provider Nurse Practitioner Family; Visit Provider Nurse Practitioner Family
DX: Z13.21 Encounter for screening for nutritional disorder (principal)
CPT/HCPCS: 36415; 82306

== ENCOUNTER → 2024-06-13 | Outpatient (CLI) | payer OTHER, SELFPAY ==
[2024-06-13 14:00] LABS: Absolute Lymphocyte Count 2.04 X10^3/uL (0.83-4.51); Absolute Neutrophil Count 2.4 X10^3/uL (2.0-7.7); Basophil# 0.04 X10^3/uL; Basophil% 0.8 % (0-1); Eosinophil# 0.08 X10^3/uL; Eosinophils% 1.6 % (0-5); Hematocrit 43.6 % (37-47); Hemoglobin 14.9 g/dL (12.0-15.0); Lymphocyte # 2.04 X10^3/ul (0.83-4.51); Lymphocyte % 41.3 % (19-41); Mean Corp Hgb Conc 34.2 g/dL (32-36); Mean Corpuscular Hgb 32.5 pg (27.0-32.0); Mean Corpuscular Volume 95.2 fL (81-99); Mean Platelet Vol. 10.6 fl (6.2-12.0); Monocyte% 8.1 % (0-10); NRBC Flagged by Analyzer 0 % (0-5); Neutrophil # 2.37 X10^3/uL (2.7-7.7); Platelet Count 235 K/mm3 (150-450); RBC Distribution Width CV 12.5 % (11.6-14.6); RBC Distribution Width SD 43.6 fl (35.1-43.9); Red Blood Count 4.58 M/mm3 (4.2-5.4); White Blood Count 4.9 K/mm3 (4.4-11.0)
== END | disposition home or self-care (01) ==
LOC: BWCLAB 13:47
PROVIDERS: PCP Family Medicine; Referring Provider Nurse Practitioner Family; Visit Provider Nurse Practitioner Family
DX: E66.89 Other obesity not elsewhere classified (principal); E66.3 Overweight
CPT/HCPCS: 36415; 85025

== ENCOUNTER → 2024-12-17 | Outpatient (CLI) | payer OTHER, SELFPAY | END | disposition home or self-care (01) | LOC: LABSPEC 14:59 | PROVIDERS: PCP Family Medicine; Visit Provider Physician Assistant | DX: R39.9 Unspecified symptoms and signs involving the genitourinary system (principal) | CPT/HCPCS: 87077; 87086; 87088; 87186 ==